=== PATIENT | male | born 1990 | race Caucasian/White ===

== ENCOUNTER 2018-05-14 18:14 | Emergency (ER) | payer OTHER ==
[~2018-05-14] VITALS: Ht 182.9 cm; Wt 86.6 kg
[2018-05-14 18:16] VITALS: Ht 182.9 cm; Wt 86.6 kg
[2018-05-14 20:28] VITALS: BP 131/78
== END 2018-05-14 20:28 | disposition home or self-care (01) ==
LOC: ED 18:14
DX: S39.012A Strain of muscle, fascia and tendon of lower back, initial encounter (principal); S16.1XXA Strain of muscle, fascia and tendon at neck level, initial encounter; S09.8XXA Other specified injuries of head, initial encounter; W08.XXXA Fall from other furniture, initial encounter; W22.8XXA Striking against or struck by other objects, initial encounter; Y93.89 Activity, other specified; Y92.89 Other specified places as the place of occurrence of the external cause; Y99.8 Other external cause status
CPT/HCPCS: J1885; J2270

== ENCOUNTER 2018-05-19 23:26 | Emergency (ER) | payer OTHER ==
[~2018-05-19] VITALS: Ht 182.9 cm; Wt 89.8 kg
[2018-05-19 23:32] VITALS: Ht 182.9 cm; Wt 89.8 kg
[2018-05-20 01:55] VITALS: BP 127/76
== END 2018-05-20 01:55 | disposition home or self-care (01) ==
LOC: ED 23:26
DX: M54.5 Low back pain (principal); W08.XXXD Fall from other furniture, subsequent encounter
CPT/HCPCS: J1885